=== PATIENT | female | born 1955 | race Caucasian/White ===

== ENCOUNTER 2017-05-11 18:32 | Emergency (ER) | payer BC ==
[2017-05-11] MEDS ORDERED: SULFA/TRIMETH 800/160 (DS) TAB 1 EA TAB PO ONE (19:29)
--- NOTE | 2017-05-11 19:34 | ED.PDOC ---
History of Present Illness - General Chief Complaint: Skin/Abrasion/Tear Stated Complaint: Splinter in right foot Time Seen by Provider: 05/11/17 18:59 Source: patient Exam Limitations: no limitations - History of Present Illness Initial Comments: he patient is 61-year-old female presenting to the emergency room secondary to a large splinter of wood entering over the top of her right foot is metacarpal phalangeal joint and extending up approximately an inch and a quarter underneath the skin. The patient broke about a quarter of it off trying to pull it out. This happened immediately prior to arrival. The wood was of course not clean. Timing/Duration: momentarily Severity: mild Improving Factors: nothing Worsening Factors: nothing Associated Symptoms: denies symptoms Allergies/Adverse Reactions: Allergies NO KNOWN ALLERGY Allergy (Verified 05/11/17 18:56) Home Medications: Ambulatory Orders Sulfa/Trimeth 800/160 (Ds) Tab [Bactrim DS Tab] 1 ea PO DAILY #3 tab 05/11/17 Review of Systems - Review of Systems Constitutional: States: no symptoms reported EENTM: States: no symptoms reported Respiratory: States: no symptoms reported Cardiology: States: no symptoms reported Gastrointestinal/Abdominal: States: no symptoms reported Genitourinary: States: no symptoms reported Musculoskeletal: States: no symptoms reported Skin: States: see HPI Neurological: States: no symptoms reported Endocrine: States: no symptoms reported All other Systems: No Change from Baseline Past Medical History (General) - Patient Medical History Hx Seizures: No Hx Stroke: No Hx Dementia: No Hx Asthma: No Hx of COPD: No Hx Cardiac Disorders: No Hx Congestive Heart Failure: No Hx Pacemaker: No Hx Hypertension: No Hx Thyroid Disease: No Hx Diabetes: No Hx Gastroesophageal Reflux: No Hx Renal Disease: No Hx Cancer: No Hx of HIV: No Hx Hepatitis C: No Hx MRSA: No Surgical History: tonsillectomy - Vaccination History Hx Tetanus, Diphtheria Vaccination: No Hx Influenza Vaccination: No Hx Pneumococcal Vaccination: No Immunizations Up to Date: Yes - Social History Hx Tobacco Use: No Hx Alcohol Use: Yes - occasional Hx Substance Use: No Hx Substance Use Treatment: No Hx Depression: No - Activities of Daily Living Hospice Agency (if applicable):: None - Female History Patient is a Female of Child Bearing Age (10 -59 yrs old): No Patient : No Family Medical History - Family History Father Family History: Unknown Living Status: Unknown Physical Exam - Physical Exam General Appearance: Alert, Comfortable, No apparent distress Eye Exam: bilateral normal Ears, Nose, Throat: hearing grossly normal Neck: full range of motion Respiratory: no respiratory distress, no accessory muscle use Cardiovascular/Chest: normal peripheral pulses, no edema Peripheral Pulses: dorsalis pedis,right: 2+, dorsalis pedis,left: 2+, posterior tibialis,right: 2+, posterior tibialis,left: 2+ Rectal Exam: deferred Extremity: normal range of motion, no pedal edema, no calf tenderness, normal capillary refill Neurologic: meat grader II-XII nml as tested, alert, normal mood/affect, oriented x 3 Skin Exam: normal color, other - splinter palpable under the skin Comments: Vital Signs - 24 hr 05/11/17 18:57 Temperature 98.0 F Pulse Rate [ 65 left radial] Respiratory 18 Rate Blood Pressure 148/80 [Left Arm] O2 Sat by Pulse 94 L Oximetry Progress - Progress Progress: 05/11/17 19:31 the patient is a 61-year-old female presenting to the emergency room secondary to a shard of wood piercing the skin above the first metacarpal on the right foot. Risk and benefits of removal are explained to the patient and she does agree to proceed. The area is cleaned with hydrogen peroxide. 1% lidocaine without epinephrine was used 1 cc for local anesthetic. scalpel was used to cut longitudinally over the splinter. Approximately a 1/2 inch incision was made. Splinter was able to be grasped and removed. It is approximately 1 inch in length when removed. The wound is cleaned with hydrogen peroxide. 2 simple sutures of 4-0 Ethilon were used for reapproximation. The patient was given a dose of Bactrim here. She'll be placed on Bactrim DS 1 daily for the next 3 days. Sutures need to come out in approximately 7 days. ER warnings were given for any evidence of infection. Departure - Departure Clinical Impression: Foreign body (FB) in soft tissue Disposition: Discharge to Home or Self Care Condition: Fair Departure Forms: ED Discharge - Pt. Copy, Patient Portal Self Enrollment Instructions: DI for Laceration Repair -- Simple Diet: regular diet Activity: increase activity as tolerated Referrals: GRISEL WALLACE [Primary Care Provider] - 1-2 Weeks Prescriptions: Sulfa/Trimeth 800/160 (Ds) Tab [Bactrim DS Tab] 1 ea PO DAILY #3 tab Home Medications: Ambulatory Orders Sulfa/Trimeth 800/160 (Ds) Tab [Bactrim DS Tab] 1 ea PO DAILY #3 tab 05/11/17 Additional Instructions: the patient is a 61-year-old female presenting to the emergency room secondary to a shard of wood piercing the skin above the first metacarpal on the right foot. the piece of wood had to be cut out. 2 simple sutures of 4-0 Ethilon were used for reapproximation. The patient was given a dose of Bactrim here. She'll be placed on Bactrim DS 1 daily for the next 3 days. Sutures need to come out in approximately 7 days. ER warnings were given for any evidence of infection.
[2017-05-11] MEDS ORDERED: TETANUS,DIPHTHERIA,PERTUSSIS 1 EA SYG IM ONE (19:38)
[2017-05-11 20:03] VITALS: BP 133/79; O2SAT 97
[2017-05-11 20:05] VITALS: TEMP 98.2
== END 2017-05-11 20:05 | disposition home or self-care (01) ==
LOC: ER 18:32
DX: S90.851A Superficial foreign body, right foot, initial encounter (principal); Z23 Encounter for immunization; W45.8XXA Other foreign body or object entering through skin, initial encounter; Y92.9 Unspecified place or not applicable